=== PATIENT | female | born 1935 | race Caucasian/White ===

== ENCOUNTER 2016-08-04 10:23 | Day surgery (SDC) | payer OTHER ==
[2016-08-04] MEDS ORDERED: NS 500 ML IV ONE (10:32)
[2016-08-04 10:34] VITALS: RESP 16; O2SAT 97
--- NOTE | 2016-08-04 10:36 | EDPHY ---
H & P Time Seen by Provider: 08/04/16 10:27 HPI/ROS: CHIEF COMPLAINT: Chest pain HISTORY OF PRESENT ILLNESS: The patient is an 81-year-old female with history of severe Alzheimer's dementia who comes in by EMS complaining of chest pain this morning. She tells me that she does not remember the episode but that she most of told someone she had pain and suddenly there were bunch of people around her bring her to the hospital. Dr. Barrett called prior to her arrival and stated that her pacer reached its end of life about 1 month ago but family declined decided not to replace because she is palliative care only. EMS did record about a 5 second sinus pause. The patient currently has no complaints. She denies ever having any shortness of breath or abdominal pain. She does have a history of atrial fibrillation as well. REVIEW OF SYSTEMS: Constitutional: denies: chills, fever, recent illness, recent injury EENTM: denies: blurred vision, double vision, nose congestion Respiratory: denies: cough, shortness of breath Cardiac: See HPI Gastrointestinal/Abdominal: denies: abdominal pain, diarrhea, nausea, vomiting, blood streaked stools Genitourinary: denies: dysuria, frequency, hematuria, pain Musculoskeletal: denies: joint pain, muscle pain Skin: denies: lesions, rash, jaundice, bruising Neurological: denies: headache, numbness, paresthesia, tingling, dizziness, weakness Hematologic/Lymphatic: denies: blood clots, easy bleeding, easy bruising Immunologic/allergic: denies: HIV/AIDS, transplant EXAM: GENERAL: Well-appearing, cachectic HEAD: Atraumatic, normocephalic. EYES: Pupils equal round and reactive to light, extraocular movements intact, sclera anicteric, conjunctiva are normal. ENT: TMs normal, nares patent, oropharynx clear without exudates. Moist mucous membranes. NECK: Normal range of motion, supple without lymphadenopathy or JVD. LUNGS: Breath sounds clear to auscultation bilaterally and equal. No wheezes rales or rhonchi. HEART: Regular rate and rhythm without murmurs, rubs or gallops. ABDOMEN: Soft, nontender, normoactive bowel sounds. No guarding, no rebound. No masses appreciated. BACK: No CVA tenderness, no spinal tenderness, step-offs or deformities EXTREMITIES: Normal range of motion, no pitting or edema. No clubbing or cyanosis. NEUROLOGICAL: Cranial nerves II through XII grossly intact. Normal speech, normal gait. 5/5 strength, normal movement in all extremities, normal sensation PSYCH: Normal mood, normal affect. SKIN: Warm, dry, normal turgor, no visible rashes or lesions. Source: RN/MD, EMS, Old records Exam Limitations: No limitations - Personal History Tetanus Vaccine Date: <10 YRS - Medical/Surgical History Hx Asthma: No Hx Chronic Respiratory Disease: No Hx Diabetes: No Hx Cardiac Disease: Yes Hx Renal Disease: No Hx Cirrhosis: No Hx Alcoholism: No Hx HIV/AIDS: No Hx Splenectomy or Spleen Trauma: No Other PMH: Hypothyroidism, coronary artery disease, atrial fibrillation, ESSential tremor, hyperlipidemia, peripheral vascular disease, spinal stenosis, occasional urinary tract infection, Knee surgery, - Family History Significant Family History: Hypertension - Social History Smoking Status: Former smoker Alcohol Use: None Drug Use: None Constitutional: Initial Vital Signs Temperature (C) 36.4 C 08/04/16 10:32 Heart Rate 55 L 08/04/16 10:32 Respiratory Rate 16 08/04/16 10:32 Blood Pressure 171/96 H 08/04/16 10:32 O2 Sat (%) 97 08/04/16 10:32 O2 Delivery Mode Room Air Allergies/Adverse Reactions: No Known Allergies Allergy (Verified 08/05/15 10:26) Home Medications: Medication Instructions Recorded Simvastatin [Zocor] 60 mg PO DAILY18 08/30/11 Thyroid [Christiana Thyroid] 60 mg PO DAILY10 08/30/11 Warfarin Sodium [Coumadin] 5 mg PO SUMOWETHFR@16 08/30/11 Warfarin Sodium [Coumadin] 7.5 mg PO TUSA@16 08/30/11 Donepezil HCl 07/29/15 Propanolol 07/29/15 Medical Decision Making - Diagnostics EKG Interpretation: An EKG obtained and was read and documented in trace view. Please see trace view for full reading and report. Sinus bradycardia rate 49, similar to previous ED Course/Re-evaluation: 11:[address] Barrett has evaluated the patient and will admit her for a new pacemaker. Patient and family have now consented. Differential Diagnosis: Partial list of the Differential diagnosis considered include but were not limited to; bradycardia, chest pain and although unlikely based on the history and physical exam, I also considered infection, acute coronary disease, trauma. - Data Points Laboratory Results: Laboratory Results 08/04/16 10:30 08/04/16 10:30 08/04/16 10:30 WBC 6.40 10^3/uL (3.80-9.50) RBC 5.00 10^6/uL (4.18-5.33) Hgb 16.3 g/dL (12.6-16.3) Hct 48.7 H % (38.0-47.0) MCV 97.4 fL (81.5-99.8) MCH 32.6 pg (27.9-34.1) MCHC 33.5 g/dL (32.4-36.7) RDW 13.1 % (11.5-15.2) Plt Count 226 10^3/uL (150-400) MPV 9.4 fL (8.7-11.7) Neut % (Auto) 73.1 % (39.3-74.2) Lymph % (Auto) 19.8 % (15.0-45.0) [place] % (Auto) 5.3 % (4.5-13.0) Eos % (Auto) 1.3 % (0.6-7.6) Baso % (Auto) 0.3 % (0.3-1.7) Nucleat RBC Rel Count 0.0 % (0.0-0.2) Absolute Neuts (auto) 4.68 10^3/uL (1.70-6.50) Absolute Lymphs (auto) 1.27 10^3/uL (1.00-3.00) Absolute Monos (auto) 0.34 10^3/uL (0.30-0.80) Absolute Eos (auto) 0.08 10^3/uL (0.03-0.40) Absolute Basos (auto) 0.02 10^3/uL (0.02-0.10) Absolute Nucleated RBC 0.00 10^3/uL (0-0.01) Immature Gran % 0.2 % (0.0-1.1) Immature Gran # 0.01 10^3/uL (0.00-0.10) PT 13.4 SEC (12.0-15.0) INR 1.03 (0.83-1.16) APTT 23.9 SEC (23.0-38.0) Sodium 148 H mEq/L (134-144) Potassium 4.8 mEq/L (3.5-5.2) Chloride 112 H mEq/L (97-110) Carbon Dioxide 25 mEq/l (22-31) Anion Gap 11 mEq/L (8-16) BUN 16 mg/dL (7-23) Creatinine 1.2 H mg/dL (0.6-1.0) Estimated GFR 43 Glucose 93 mg/dL (70-100) Calcium 9.9 mg/dL (8.5-10.4) Troponin I Pending Medications Given: Discontinued Medications Sodium Chloride (Ns) 500 mls @ 0 mls/hr IV ONCE ONE PRN Reason: As Directed Stop: 08/04/16 10:33 Last Admin: 08/04/16 10:46 Dose: 500 mls Departure - Departure Disposition: [facility] Inpatient Acute Clinical Impression: Bradycardia Chest pain Qualifiers: Chest pain type: unspecified Qualifier Code: (R07.9) Chest pain, unspecified Condition: Fair
--- NOTE | 2016-08-04 10:39 | CPEKG ---
Heart Rate: 49 RR Interval: 1224 P-R Interval: 152 QRSD Interval: 98 QT Interval: 464 QTC Interval: 419 P [place]: 71 QRS [place]: 52 T Wave [place]: 25 EKG Severity - ABNORMAL ECG - EKG Impression: SINUS BRADYCARDIA EKG Impression: CONSIDER ANTEROSEPTAL INFARCT EKG Impression: similar to previous Electronically Signed By: Salazar Shay 04-Aug-2016 10:47:46
[2016-08-04 10:41] LABS: % IMMATURE GRANULYOCYTES 0.2 % (0.0-1.1); ABSOLUTE IMMATURE GRANULOCYTES 0.01 10^3/uL (0.00-0.10); ADD DIFF? NO; ADD MORPH? NO; ADD SCAN? NO; ATYPICAL LYMPHOCYTE FLAG 10 (0-99); FRAGMENT RBC FLAG 0 (0-99); HEMATOCRIT 48.7 % (38.0-47.0); HEMOGLOBIN 16.3 g/dL (12.6-16.3); LEFT SHIFT FLG 0 (0-99); LIPEMIA HEMOLYSIS FLAG 80 (0-99); MEAN CELL HEMOGLOBIN 32.6 pg (27.9-34.1); MEAN CELL HEMOGLOBIN CONCENTR. 33.5 g/dL (32.4-36.7); MEAN CELL VOLUME 97.4 fL (81.5-99.8); MEAN PLATELET VOLUME 9.4 fL (8.7-11.7); PLATELET CLUMPS FLAG 10 (0-99); PLATELET COUNT 226 10^3/uL (150-400); RED CELL DISTRIBUTION WIDTH 13.1 % (11.5-15.2)
[2016-08-04 10:50] LABS: APTT 23.9 SEC (23.0-38.0); INR 1.03 (0.83-1.16); PROTIME(PATIENT) 13.4 SEC (12.0-15.0)
[2016-08-04 10:58] LABS: ANION GAP 11 mEq/L (8-16); CALCIUM 9.9 mg/dL (8.5-10.4); CARBON DIOXIDE 25 mEq/l (22-31); CHLORIDE 112 mEq/L (97-110); CREATININE 1.2 mg/dL (0.6-1.0); GLOMERULAR FILTRATION RATE 43; GLUCOSE 93 mg/dL (70-100); POTASSIUM 4.8 mEq/L (3.5-5.2); SODIUM 148 mEq/L (134-144)
[2016-08-04 11:09] LABS: TROPONIN I 0.016 ng/mL (0-0.034)
[2016-08-04] MEDS ORDERED: BACITRACIN IRRIGATION/NS 50,000 UNITS/1,000 ML BTL IRR ONE (11:12)
[2016-08-04] MEDS ORDERED: DIAZEPAM 5 MG TAB PO ONE (11:12)
[2016-08-04] MEDS ORDERED: diphenhydrAMINE 25 MG CAP PO ONE (11:12)
[2016-08-04] MEDS ORDERED: NS 1,000 ML IV SCH (11:15)
--- NOTE | 2016-08-04 11:17 | PDEACUHP ---
History and Physical - Chief Complaint chest pain - History of Present Illness patient is well known to me. Gale is 81 years old she has a known history of coronary artery disease with a permanent pacemaker for complete heart block. Several months ago we determined that her pacemaker was end of life. We decided at that time with her family to see how she would perform without the pacemaker. This was done in the setting of severe Alzheimer's disease. This morning she awoke not feeling well. On arrival to the emergency department telemetry strip show complete heart block without capture of the pacemaker which is expected based on most recent interrogation. On my arrival she is feeling relatively well. She complains of mild discomfort. She denies shortness of breath PND orthopnea. She has had no syncope or near syncope. History Information - Allergies/Home Medication List Allergies/Adverse Reactions: No Known Allergies Allergy (Verified 08/05/15 10:26) Home Medications: Simvastatin [Zocor] 60 mg PO DAILY18 08/30/11 [Last Taken Unknown] Thyroid [[place] Thyroid] 60 mg PO DAILY10 08/30/11 [Last Taken Unknown] Warfarin Sodium [Coumadin] 5 mg PO SUMOWETHFR@16 08/30/11 [Last Taken Unknown] Warfarin Sodium [Coumadin] 7.5 mg PO TUSA@16 08/30/11 [Last Taken Unknown] Donepezil HCl 07/29/15 [Last Taken Unknown] Propanolol 07/29/15 [Last Taken Unknown] I have personally reviewed and updated: family history, medical history, social history, surgical history - Past Medical History atrial fibrillation, coronary artery disease, dementia, hyperlipidemia Additional medical history: Hypothyroidism - Surgical History Reports: angioplasty, pacemaker/AICD - Family History Positive for: non-pertinent - Social History Smoking Status: Former smoker Alcohol Use: None Drug Use: None Additional social history: she is currently living in assisted living. She is planning to move to a new apartment which has been quite stressful. She is accompanied today by her daughter. Review of Systems Constitutional: Denies: chills, diaphoresis, malaise EENMT: Reports: no symptoms Cardiac: Reports: chest pain. Denies: irregular heart rate, lightheadedness, palpitations, syncope Respiratory: Reports: no symptoms Gastrointestinal: Reports: no symptoms Genitourinary: Reports: no symptoms Muscolosketal: Reports: no symptoms Skin: Reports: no symptoms Hematologic/Lymphatic: Reports: no symptoms Immunologic/Allergy: Reports: no symptoms Physical Exam Temp Pulse Resp BP Pulse Ox 36.4 C 55 L 16 171/96 H 97 08/04/16 10:32 08/04/16 10:32 08/04/16 10:32 08/04/16 10:32 08/04/16 10:32 Constitutional: no apparent distress, appears nourished, not in pain Eyes: PERRL Ears, Nose, Mouth, Throat: moist mucous membranes Cardiovascular: irregularly irregular, other ( Pacemaker left subclavian fossa) Peripheral Pulses: 1+: carotid (R), carotid (L), femoral (R), femoral (L) Respiratory: no respiratory distress, no rales or rhonchi, clear to auscultation Gastrointestinal: normoactive bowel sounds, soft, non-tender abdomen, no palpable masses Genitourinary: no bladder fullness Skin: warm, normal color Musculoskeletal: full muscle strength Neurologic: other ( Awake and alert. Short-term memory is not intact.) Psychiatric: poor insight, poor judgement, poor memory Lymph, Heme, Immunologic: no cervical LAD, no supraclavicular LAD Lab Data & Imaging Review 08/04/16 10:30 08/04/16 10:30 WBC 6.40 10^3/uL (3.80-9.50) 08/04/16 10:30 RBC 5.00 10^6/uL (4.18-5.33) 08/04/16 10:30 Hgb 16.3 g/dL (12.6-16.3) 08/04/16 10:30 Hct 48.7 % (38.0-47.0) H 08/04/16 10:30 MCV 97.4 fL (81.5-99.8) 08/04/16 10:30 MCH 32.6 pg (27.9-34.1) 08/04/16 10:30 MCHC 33.5 g/dL (32.4-36.7) 08/04/16 10:30 RDW 13.1 % (11.5-15.2) 08/04/16 10:30 Plt Count 226 10^3/uL (150-400) 08/04/16 10:30 MPV 9.4 fL (8.7-11.7) 08/04/16 10:30 Neut % (Auto) 73.1 % (39.3-74.2) 08/04/16 10:30 Lymph % (Auto) 19.8 % (15.0-45.0) 08/04/16 10:30 [place] % (Auto) 5.3 % (4.5-13.0) 08/04/16 10:30 Eos % (Auto) 1.3 % (0.6-7.6) 08/04/16 10:30 Baso % (Auto) 0.3 % (0.3-1.7) 08/04/16 10:30 Nucleat RBC Rel Count 0.0 % (0.0-0.2) 08/04/16 10:30 Absolute Neuts (auto) 4.68 10^3/uL (1.70-6.50) 08/04/16 10:30 Absolute Lymphs (auto) 1.27 10^3/uL (1.00-3.00) 08/04/16 10:30 Absolute Monos (auto) 0.34 10^3/uL (0.30-0.80) 08/04/16 10:30 Absolute Eos (auto) 0.08 10^3/uL (0.03-0.40) 08/04/16 10:30 Absolute Basos (auto) 0.02 10^3/uL (0.02-0.10) 08/04/16 10:30 Absolute Nucleated RBC 0.00 10^3/uL (0-0.01) 08/04/16 10:30 Immature Gran % 0.2 % (0.0-1.1) 08/04/16 10:30 Immature Gran # 0.01 10^3/uL (0.00-0.10) 08/04/16 10:30 PT 13.4 SEC (12.0-15.0) 08/04/16 10:30 INR 1.03 (0.83-1.16) 08/04/16 10:30 APTT 23.9 SEC (23.0-38.0) 08/04/16 10:30 Sodium 148 mEq/L (134-144) H 08/04/16 10:30 Potassium 4.8 mEq/L (3.5-5.2) 08/04/16 10:30 Chloride 112 mEq/L (97-110) H 08/04/16 10:30 Carbon Dioxide 25 mEq/l (22-31) 08/04/16 10:30 Anion Gap 11 mEq/L (8-16) 08/04/16 10:30 BUN 16 mg/dL (7-23) 08/04/16 10:30 Creatinine 1.2 mg/dL (0.6-1.0) H 08/04/16 10:30 Estimated GFR 43 08/04/16 10:30 Glucose 93 mg/dL (70-100) 08/04/16 10:30 Calcium 9.9 mg/dL (8.5-10.4) 08/04/16 10:30 Troponin I 0.016 ng/mL (0-0.034) 08/04/16 10:30 EKG Interpretation: Positive for: normal sinsus rhythm ( sinus rhythm with intermittent heart block and no ventricular escape.) Assessment & Plan Assessment: Bradycardia (Acute) Chest pain (Acute) Impression: 81-year-old female well known to nd pacemaker at end of life likely not working at all at this point with complete heart block. Discussed options with the patient and her daughter including comfort measures versus generator change. In light of current quality of life plans to move into a new apartment and enjoyment of current quality would proceed with pacemaker generator change acutely today.Patients family would like an MRI compatible pacemaker as she is having significant back pain that would require an MRI. Atypical chest pain of uncertain etiology. Will cycle troponins. Atrial fibrillation currently on anticoagulation. She is currently subtherapeutic. Hyperlipidemia on statin. Alzheimer's dementia on Aricept. Hypothyroidism on Synthroid replacement. Will plan to check a TSH. Plan: Pacemaker generator change today. Risks and benefits of this approach were discussed with the patient's daughter and the patient. Based on her current mental status she is not able to give informed consent. I have had this conversation not only with her daughter but other family members in the past. Will proceed. In light of underlying dementia would recommend general anesthesia consultation.
--- NOTE | 2016-08-04 11:35 | DX ---
Chest, AP and Lateral History: Chest pain Comparison: August 30, 2011 Findings: Lungs are clear, without infiltrate or consolidation. Lung volumes remain moderately promin ent. Heart size and pulmonary vascularity are normal. A left chest wall pacer device and associated b ipolar pacer leads are in stable position. Median sternotomy wires and CABG clips are again present. There is stable atherosclerotic calcification in the aortic arch. There is stable mild tortuosity of the descending thoracic aorta. There is no adenopathy or mass lesion. There is no pleural effusion or pneumothorax. 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 Orthopedic hardware again overlies the low lumbar spine. Impression: COPD. Coronary artery disease. Nothing acute identified.
[2016-08-04 12:23] VITALS: BP 146/64; PULSE 48; TEMP 97.7
[2016-08-04] MEDS ORDERED: ceFAZolin 2 GM in D5W 100 ML IV ONE (13:30)
[2016-08-04] MEDS ORDERED: fentaNYL 100 MCG/2 ML INJ ONE (13:40)
[2016-08-04] MEDS ORDERED: PROPOFOL 200 MG/20 ML VIAL ONE ×2 (13:40→15:01)
[2016-08-04] MEDS ORDERED: LIDO/EPI 1% **for epidural** 30 ML SDV ONE (14:07)
[2016-08-04] MEDS ORDERED: LIDOCAINE 1% 30 ML SDV ONE (14:07)
[2016-08-04] MEDS ORDERED: BUPIVACAINE 0.5% 30 ML SDV ONE (14:07)
--- NOTE | 2016-08-04 14:41 | PDCTREPORT ---
Cardiothoracic Procedure Rpt Cardiothoracic Procedure Report: Procedure: Pacemaker generator change. Indication: Pacer at end of battery life with underlying intermittant complete AV heart block. Anesthesia present for concious sedation with hx. of severe dementia. After obtaining informed consent from the patients son, she was brought to the radiographer cardiac catheterization in the fasting state. The pacer area was sterilely prepped and draped. The old scar was anesthetized with 2% Xylocaine. An incision was made through the old scar. Using a combination of sharp and blunt dissection the pacer pocket was entered. The device was brought to the field. Leads were removed and the generator was removed from the field. A new generator was brought to the field. Leads were attached. Set screws were tightened per industry standards. The device was coiled into the pocket after copiously irrigating the pocket with Bacitracin. The pocket was closed with 2.0 Vicryl. The subcutaneous layer was closed with 3.0 Vicryl. The skin was closed with a stratofix suture. Patient in taken to recovery in stable condition. Device MRI compatible [facility] 8-DR [facility] MRI [id number] Setrox S 45 [id number] in the atrium Setrox S 53 [id number] in the ventricle Conclusion: Successful pacemaker generator replacement Patient Problems: Problems Problem Status Diagnosed Bradycardia Acute Chest pain Acute Heart block AV complete Acute Pacemaker at end of battery life Acute
--- NOTE | 2016-08-04 15:36 | CPEKG ---
Heart Rate: 60 RR Interval: 1000 P-R Interval: 164 QRSD Interval: 82 QT Interval: 472 QTC Interval: 472 P [place]: 14 QRS [place]: 48 T Wave [place]: 12 EKG Severity - ABNORMAL ECG - EKG Impression: ATRIAL-PACED COMPLEXES EKG Impression: LEFT ATRIAL ABNORMALITY EKG Impression: Poor R wave progression Electronically Signed By: Jevon Parra 04-Aug-2016 17:00:51
--- NOTE | 2016-08-04 15:49 | DX ---
Portable Chest, 1537 History: Post pacemaker placement Comparison: August 04, 2016 Findings: A different left chest wall pacer device is present. The pacer wires are solidly connected and there tips appear to be in excellent stable position overlying the heart. There is no pneumothora x. Lungs are clear. Median sternotomy wires and CABG clips are present. EKG leads overlie the chest. Impression: Excellent pacer position.
[2016-08-05] MEDS ORDERED: PROPRANOLOL HCL 80 MG PO SCH ×2 (09:00)
[2016-08-05] MEDS ORDERED: DONEPEZIL HCL 5 MG TAB PO SCH ×2 (09:00)
[2016-08-05] MEDS ORDERED: Herbals/Supplements -Info Only PO SCH (09:00)
[2016-08-05] MEDS ORDERED: ACETAMINOPHEN 500 MG TAB PO SCH ×2 (09:00)
[2016-08-05] MEDS ORDERED: THYROID 60 MG TAB PO SCH ×2 (10:00)
[2016-08-06] MEDS ORDERED: NON-FORMULARY NEW DRUG (Thyroid,Pork [Armour Thyroid] 15 MG) PO SCH ×2 (10:00)
== END 2016-08-04 16:52 | disposition home or self-care (01) ==
LOC: EDUNIT# → UNDOADMOB 11:00 → FCATH 12:51
PROVIDERS: ATTEND Internal Medicine Interventional Cardiology
PROC: 0JPT0PZ Removal of Cardiac Rhythm Related Device from Trunk Subcutaneous Tissue and Fascia, Open Approach (ICD-10-PCS; principal; 2016-08-04)
PROC: 0JH607Z Insertion of Cardiac Resynchronization Pacemaker Pulse Generator into Chest Subcutaneous Tissue and Fascia, Open Approach (ICD-10-PCS; principal; 2016-08-04)
DX: Z45.010 Encounter for checking and testing of cardiac pacemaker pulse generator [battery] (principal); R07.89 Other chest pain; I44.2 Atrioventricular block, complete; G30.9 Alzheimer's disease, unspecified; F02.80 Dementia in other diseases classified elsewhere, unspecified severity, without behavioral disturbance, psychotic disturbance, mood disturbance, and anxiety; E03.9 Hypothyroidism, unspecified; I25.10 Atherosclerotic heart disease of native coronary artery without angina pectoris; E78.5 Hyperlipidemia, unspecified; I73.9 Peripheral vascular disease, unspecified; Z87.440 Personal history of urinary (tract) infections; Z87.891 Personal history of nicotine dependence; Z95.1 Presence of aortocoronary bypass graft
CPT/HCPCS: J0690; J2704; J3010

== ENCOUNTER 2017-09-03 16:17 | Emergency (ER) | payer OTHER, BC ==
[2017-09-03 16:36] VITALS: PULSE 52; RESP 16; TEMP 97; O2SAT 98
[2017-09-03] MEDS ORDERED: LET GEL TOPICAL 1 EA SYR TP ONE ×2 (16:38→16:39)
--- NOTE | 2017-09-03 16:40 | EDPHY ---
H & P Time Seen by Provider: 09/03/17 16:34 HPI/ROS: This patient arrives with her family-daughter an son-in-law who brought her in for evaluation of a left arm laceration that occurred in her assisted living center. She believes that she and another resident there collided with walkers or wheelchairs. She does remember the details but has a superficial flap-type laceration to the dorsum of her left forearm. The incident occurred sometime within the last 12-24 hours. She reports mild discomfort at the site. She denies any other associated injuries. ROS: Neuro: No numbness or tingling Musculoskeletal: No underlying bony pain. No other injuries. 5 point ROS is otherwise negative Past Medical/Surgical History: Immunizations up-to-date. Smoking Status: Former smoker Physical Exam: Physical Exam Vital signs are normal. General: Pleasant elderly female No acute distress HEENT: Atraumatic. Eyes: Pupils equal and react to light. Extraocular motions are intact. Lungs: No respiratory distress. Cardiac: Brisk capillary refill is intact throughout. Pulses are 2+ and symmetric in the affected extremity. Skin: No rash or pallor. Patient has a 3 cm semicircular flap type superficial laceration with no bleeding with tissue well-approximated the dorsum of the left forearm. No underlying bony tenderness. No erythema or discharge. Neuro: Alert with no sensorimotor deficits. Constitutional: Initial Vital Signs Temperature (C) 36.1 C 09/03/17 16:32 Heart Rate 52 L 09/03/17 16:32 Respiratory Rate 16 09/03/17 16:32 O2 Sat (%) 98 09/03/17 16:32 O2 Delivery Mode Room Air Allergies/Adverse Reactions: No Known Allergies Allergy (Verified 09/03/17 16:30) Home Medications: Medication Instructions Recorded Acetaminophen [Tylenol ES 500 mg 500 mg PO DAILY 08/04/16 (*)] Calcium Carb W/Vit D [Calcium Carb 500 mg PO DAILY 08/04/16 W/Vit D 500/200 (*)] Donepezil HCl [Aricept 5 MG (*)] 10 mg PO DAILY 08/04/16 Herbals/Supplements -Info Only 1 ea PO DAILY 08/04/16 Propranolol HCl [Innopran Xl] 80 mg PO DAILY 08/04/16 Thyroid [[place] Thyroid 60 MG (*)] 60 mg PO DAILY10 08/04/16 Thyroid,Pork [[place] Thyroid] 15 mg PO SUMOWEFR@1000 08/04/16 MDM/Departure - MDM Medications Given: Discontinued Medications Tetracaine/Epinephrine/Lidocaine (Let Gel Topical) 1 ea TP EDNOW ONE Stop: 09/03/17 16:39 Last Admin: 09/03/17 16:46 Dose: 1 ea ED Course/Re-evaluation: Let solution is applied. The wound was clean by our nurse. She then placed Steri-Strips according my instructions. We counseled patient and her family regarding Steri-Strips care. - Depart Disposition: Home, Routine, Self-Care Clinical Impression: Superficial laceration Condition: Good Instructions: Steristrips (ED) Additional Instructions: Diagnosis: Superficial laceration of arm Plan: Keep Steri-Strips in place until they come off on her own accord- typically 5-10 days. By the time the wound should be healing well. Return if she develops redness, discharge or other concerns for infection. It is okay to get the Steri-Strips wet but try not to scrub the area. Referrals: Hay Najera MD [Primary Care Provider] - As per Instructions
[2017-09-03 17:34] VITALS: BP 132/82
== END 2017-09-03 17:25 | disposition home or self-care (01) ==
LOC: CED 16:17
DX: S51.812A Laceration without foreign body of left forearm, initial encounter (principal); Z87.891 Personal history of nicotine dependence; W51.XXXA Accidental striking against or bumped into by another person, initial encounter

== ENCOUNTER → 2017-09-05 | Outpatient (CLI) | payer OTHER, BC | LOC: CIMAGING 11:26 | PROVIDERS: ATTEND Internal Medicine | DX: R41.82 Altered mental status, unspecified (principal); I67.2 Cerebral atherosclerosis | CPT/HCPCS: 70450-PO ==

== ENCOUNTER 2017-09-19 10:35 | Observation (INO) | payer OTHER, BC ==
--- NOTE | 2017-09-19 11:07 | EDPHY ---
H & P Stated Complaint: Abdo pain and N/V since yesterday, called dispatch twice Time Seen by Provider: 09/19/17 11:07 HPI/ROS: CHIEF COMPLAINT: Abdominal pain HISTORY OF PRESENT ILLNESS: History is obtained primarily from the patient's daughter as patient has dementia and is unable to provide a meaningful history. She is an 82-year-old female with dementia, pacemaker placed for complete heart block, history of atrial fibrillation, hyperlipidemia, peripheral vascular disease, and an essential tremor. Her daughter tells me that yesterday she complained of some abdominal pain and had vomiting and bout of diarrhea. She was seen by [facility], a mobile medical team consisting of an EMT and a nurse. Some blood work was performed, a flu test was done and was negative, and she was given IV fluids. She felt better and her daughter stayed with her until 9:00 p.m. Last night. This morning her daughter visited and, as she has her mother was feeling well, offered her some breakfast. Her mother ate a few bites but again complained of abdominal pain. [facility] returned and recommended an evaluation in the emergency department. The patient has not had vomiting or diarrhea today. The patient does report some abdominal pain to me but is unable to be specific. There has been no known fever. No urinary symptoms but she has had a history of urinary tract infections in the past. REVIEW OF SYSTEMS: A ten point review of systems was performed and is negative with the exception of the items mentioned in the HPI. Past medical history: 1. Dementia 2. Coronary artery disease 3. Complete heart block status post pacemaker 4. Atrial fibrillation 5. Hypothyroidism 6. Hyperlipidemia 7. Peripheral vascular disease 8. Spinal stenosis 9. Essential tremor Past surgical history: 1. Pacemaker placement with generator replaced in July of 2016 2. Knee surgery Social history: She has 7 children. She lives at the [facility], independent status with outside help provided. General Appearance: Awake. Vital signs reviewed. Heart rate 122, blood pressure 121/91, respiratory rate 18, oxygen saturation 96% on room air, temperature 36.4 degrees orally. Eyes: Pupils equal and round, no conjunctival injection, no discharge. Anicteric. ENT, Mouth: Mucous membranes are moist, no oropharyngeal erythema or edema. Neck: No lymphadenopathy, supple. Nontender to palpation over the cervical spine. Respiratory: Lungs are clear to auscultation; no wheezes, rales, or rhonchi. Cardiovascular: Tachycardic with murmur present. Gastrointestinal: Abdomen is diffusely tender. Bowel sounds are present but diminished. Skin: Warm and dry, no rashes on exposed skin, normal color. Back: Nontender to palpation over the thoracolumbar spine. No CVAT. Extremities: No lower extremity edema, no calf tenderness or swelling. Neurological: Awake and alert. Oriented to person only. Moving all four extremities easily and equally. Psychiatric: Normal affect. No agitation. - Personal History Current Tetanus Diphtheria and Acellular Pertussis (TDAP): Unsure Tetanus Vaccine Date: unsure - Medical/Surgical History Hx Asthma: No Hx Chronic Respiratory Disease: No Hx Diabetes: No Hx Cardiac Disease: Yes Hx Renal Disease: No Hx Cirrhosis: No Hx Alcoholism: No Hx HIV/AIDS: No Hx Splenectomy or Spleen Trauma: No Other PMH: Hypothyroidism, coronary artery disease, atrial fibrillation, essential tremor, hyperlipidemia, peripheral vascular disease, spinal stenosis, occasional urinary tract infection, Knee surgery - Social History Smoking Status: Former smoker Constitutional: Initial Vital Signs Temperature (C) 36.4 C 09/19/17 10:37 Heart Rate 122 H 09/19/17 10:37 Respiratory Rate 18 09/19/17 10:37 Blood Pressure 121/91 H 09/19/17 10:37 O2 Sat (%) 96 09/19/17 10:37 O2 Delivery Mode Room Air O2 (L/minute) 4 Allergies/Adverse Reactions: No Known Allergies Allergy (Verified 09/03/17 16:30) Home Medications: Medication Instructions Recorded Acetaminophen [Tylenol ES 500 mg 500 mg PO DAILY 08/04/16 (*)] Calcium Carb W/Vit D [Calcium Carb 500 mg PO DAILY 08/04/16 W/Vit D 500/200 (*)] Donepezil HCl [Aricept 5 MG (*)] 10 mg PO DAILY 08/04/16 Herbals/Supplements -Info Only 1 ea PO DAILY 08/04/16 Propranolol HCl [Innopran Xl] 80 mg PO DAILY 08/04/16 Thyroid [[place] Thyroid 60 MG (*)] 60 mg PO DAILY10 08/04/16 Thyroid,Pork [[place] Thyroid] 15 mg PO SUMOWEFR@1000 08/04/16 Medical Decision Making - Diagnostics EKG Interpretation: 12 lead EKG is interpreted in Trace master View by emergency department physician. Shows sinus tachycardia with a rate over 100. There is ST elevation seen in lead V1 and V2. Imaging Results: Imaging Impressions Abdomen CT 09/19/17 11:42 Impression: 1. 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 2. 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 3. Pleural effusions with groundglass opacities and interlobular septal thickening, suggesting heart failure. 4. Hyperenhancement of the adrenal glands, possibly related to heart failure or hypovolemia/hypotension. 5. Multifocal small renal infarcts, which could be related to sequela of emboli , but are nonspecific. 6. Additional findings as above. Findings discussed with Dr. Maisha Leigh on September 19, 2017 at 1305 hours. Findings discussed with Dr. Yuniel Art on September 19, 2017 at 1322 hours. ED Course/Re-evaluation: 82-year-old female with abdominal pain. She has diffuse tenderness on exam. A CT scan was ordered shortly after my evaluation. This study was reported to me by Dr. Flores. Shows 5 cm of thrombus in the superior mesenteric artery with a severely stenotic celiac artery. There CT signs of bowel ischemia. Bilateral renal infarcts also noted. I spoke at length with 3 of the patient's children, 2 of whom are her medical decision makers. Patient was evaluated by Dr. Marc Art and he also spoke with the family. After discussion of the presumed natural history of this process and of the potential treatments--thrombolysis or surgery--it is decided to provide comfort measures only. The children with whom I spoke understand that this process will result in with bowel ischemia and likely sepsis ensuing. They understand that all efforts will be made to keep her comfortable. I answered their questions to the best of my ability. A palliative care consultation has been placed. The admitting physician, Dr. Mahmood, has been apprised of the family's wishes. I informed Dr. Barrett, her devulcanizer operator, of her admission. He has known the family for years. The family would like her pacemaker turned off. Differential Diagnosis: I considered a differential diagnosis that includes but is not limited to bowel ischemia, bowel obstruction, intra-abdominal infection such as appendicitis, diverticulitis, viral gastroenteritis. - Data Points Laboratory Results: Laboratory Results 09/19/17 11:20 09/19/17 11:20 09/19/17 09/19/17 09/19/17 13:20 12:20 11:20 WBC RBC Hgb Hct MCV MCH MCHC RDW Plt Count MPV Neut % (Auto) Lymph % (Auto) [place] % (Auto) Eos % (Auto) Baso % (Auto) Nucleat RBC Rel Count Absolute Neuts (auto) Absolute Lymphs (auto) Absolute Monos (auto) Absolute Eos (auto) Absolute Basos (auto) Absolute Nucleated RBC Immature Gran % Immature Gran # VBG Lactic Acid 4.8 mmol/L H mmol/L (0.7-2.1) Sodium 143 mEq/L mEq/L (135-145) Potassium 5.1 mEq/L mEq/L (3.5-5.2) Chloride 109 mEq/L mEq/L (97-110) Carbon Dioxide 17 mEq/l L mEq/l (22-31) Anion Gap 17 mEq/L H mEq/L (8-16) BUN 24 mg/dL H mg/dL (7-23) Creatinine 0.9 mg/dL mg/dL (0.6-1.0) Estimated GFR 60 Glucose 178 mg/dL H mg/dL (70-100) Calcium 9.3 mg/dL mg/dL (8.5-10.4) Urine Color JACINTO Urine Appearance MODERATELY TURBID Urine pH 5.0 (5.0-7.5) Ur Specific [place] 1.026 (1.002-1.030) Urine Protein 1+ H (NEGATIVE) Urine Ketones TRACE H (NEGATIVE) Urine Blood NEGATIVE (NEGATIVE) Urine Nitrate NEGATIVE (NEGATIVE) Urine Bilirubin NEGATIVE (NEGATIVE) Urine Urobilinogen NEGATIVE EU EU (0.2-1.0) Ur Leukocyte Esterase 1+ H (NEGATIVE) Urine RBC NONE SEEN /hpf /hpf (0-3) Urine WBC 10-15 /hpf H /hpf (0-3) Ur Epithelial Cells TRACE /lpf /lpf (NONE-1+) Urine Bacteria 3+ /hpf H /hpf (NONE SEEN) Hyaline Casts 1-5 /lpf /lpf (0-1) Urine Mucus 2+ /lpf H /lpf (NONE-1+) Urine Glucose NEGATIVE (NEGATIVE) 09/19/17 11:20 WBC 17.30 10^3/uL H 10^3/uL (3.80-9.50) RBC 4.66 10^6/uL 10^6/uL (4.18-5.33) Hgb 15.1 g/dL g/dL (12.6-16.3) Hct 46.6 % % (38.0-47.0) MCV 100.0 fL H fL (81.5-99.8) MCH 32.4 pg pg (27.9-34.1) MCHC 32.4 g/dL g/dL (32.4-36.7) RDW 13.2 % % (11.5-15.2) Plt Count 206 10^3/uL 10^3/uL (150-400) MPV 9.5 fL fL (8.7-11.7) Neut % (Auto) 82.5 % H % (39.3-74.2) Lymph % (Auto) 10.2 % L % (15.0-45.0) [place] % (Auto) 6.8 % % (4.5-13.0) Eos % (Auto) 0.0 % L % (0.6-7.6) Baso % (Auto) 0.2 % L % (0.3-1.7) Nucleat RBC Rel Count 0.0 % % (0.0-0.2) Absolute Neuts (auto) 14.27 10^3/uL H 10^3/uL (1.70-6.50) Absolute Lymphs (auto) 1.77 10^3/uL 10^3/uL (1.00-3.00) Absolute Monos (auto) 1.17 10^3/uL H 10^3/uL (0.30-0.80) Absolute Eos (auto) 0.00 10^3/uL L 10^3/uL (0.03-0.40) Absolute Basos (auto) 0.03 10^3/uL 10^3/uL (0.02-0.10) Absolute Nucleated RBC 0.00 10^3/uL 10^3/uL (0-0.01) Immature Gran % 0.3 % % (0.0-1.1) Immature Gran # 0.06 10^3/uL 10^3/uL (0.00-0.10) VBG Lactic Acid Sodium Potassium Chloride Carbon Dioxide Anion Gap BUN Creatinine Estimated GFR Glucose Calcium Urine Color Urine Appearance Urine pH Ur Specific [place] Urine Protein Urine Ketones Urine Blood Urine Nitrate Urine Bilirubin Urine Urobilinogen Ur Leukocyte Esterase Urine RBC Urine WBC Ur Epithelial Cells Urine Bacteria Hyaline Casts Urine Mucus Urine Glucose Medications Given: Discontinued Medications Fentanyl (Sublimaze) 50 mcg IVP EDNOW ONE Stop: 09/19/17 13:47 Last Admin: 09/19/17 13:55 Dose: 50 mcg Ondansetron HCl (Zofran) 4 mg IVP EDNOW ONE Stop: 09/19/17 11:43 Last Admin: 09/19/17 11:45 Dose: Not Given Promethazine HCl (Phenergan) 6.25 mg IVP ONCE ONE Stop: 09/19/17 11:44 Last Admin: 09/19/17 11:49 Dose: 6.25 mg Departure - Departure Disposition: [facility] Inpatient Acute Clinical Impression: Occlusion of superior mesenteric artery, Ischemia, bowel Condition: Critical
[2017-09-19 11:14] VITALS: TEMP 97.5
[2017-09-19] MEDS ORDERED: ONDANSETRON 4 MG/2 ML VIAL IVP ONE (11:42)
[2017-09-19] MEDS ORDERED: PROMETHAZINE HCL 25 MG/ML INJ IVP ONE (11:43)
[2017-09-19 11:54] LABS: PLATELET COUNT 206 10^3/uL (150-400)
[2017-09-19] MEDS ORDERED: IOPAMIDOL (ISOVUE-300) 100 ML BTL ONE (12:10)
--- NOTE | 2017-09-19 13:45 | CPEKG ---
Heart Rate: 100 RR Interval: 600 P-R Interval: 153 QRSD Interval: 102 QT Interval: 404 QTC Interval: 522 P Rosamond: 73 QRS Rosamond: -68 T Wave Rosamond: 87 EKG Severity - ABNORMAL ECG - EKG Impression: SINUS TACHYCARDIA EKG Impression: LEFT ANTERIOR FASCICULAR BLOCK EKG Impression: NONSPECIFIC T ABNORMALITIES, ANT-LAT LEADS EKG Impression: ST ELEVATION, PROBABLE ANTERIOR INJURY EKG Impression: PROLONGED QT INTERVAL EKG Impression: COMPARED TO EKG EKG DATED 08/04/2016 THESE CHANGES ARE NEW Electronically Signed By: Ignacio Packer 20-Sep-2017 16:17:30
[2017-09-19] MEDS ORDERED: fentaNYL 100 MCG/2 ML INJ IVP ONE (13:46)
[2017-09-19 15:10] VITALS: BP 102/80
[2017-09-19 16:12] VITALS: PULSE 89; RESP 16; O2SAT 97
[2017-09-19] MEDS ORDERED: LORazepam 2 MG/ML INJ IVP PRN (16:29)
[2017-09-19] MEDS ORDERED: ACETAMINOPHEN 325 MG TAB PO PRN (16:29)
[2017-09-19] MEDS ORDERED: ONDANSETRON DISINTEGRATING 4 MG TAB PO PRN (16:29)
[2017-09-19] MEDS ORDERED: ONDANSETRON 4 MG/2 ML VIAL IVP PRN (16:29)
[2017-09-19] MEDS ORDERED: HYDROmorphONE/DILAUDID 2 MG/ML INJ IVP PRN (16:29)
--- NOTE | 2017-09-19 17:00 | ASMTCMCOM ---
CM Note CM Note Notes: Pt is a 82 y/o female admitted for abdominal pain. CM met w/ pt and family for dispo planning. Family would like to get hospice involved. Pts son will reach out to his product distribution specialist to see which hospice he would recommend. CM to f/u tomorrow. CM provided family list of hospice facilities. Plan: TBD Date Signed: 09/19/2017 04:59 PM Electronically Signed By:JUAN RAMON Andrea
--- NOTE | 2017-09-19 17:09 | GHP ---
[f rep st] HISTORY AND PHYSICAL DATE OF ADMISSION: 09/19/2017 CHIEF COMPLAINT: Abdominal pain. HISTORY OF PRESENT ILLNESS: This is an 82-year-old female with a known dementia and known history of coronary artery disease with a permanent pacemaker placed for complete heart block. She presented t o the emergency department because of a complaint of abdominal pain, diarrhea, and vomiting x1 day. She has known severe dementia and has been in [facility] under care there. She was [facility] by [facility] mobile physician prior to admission and had a flu test that was negative, but no other data or information is available. She presents here for abdominal pain where CT scan has shown that she has a superior mesenteric clot. This information was presented to the family and to the patient. The p atlola herself is not decisional as she is severely demented. Her power of traffic law attorney was present, and it was decided that comfort measures only would be given. Thus, we are pursuing comfort measures on ly with pain medication and antianxiety medication. All of her other medications will be held. A ca ll was in to Cardiology as to whether we should stop the pacemaker, although my understanding verball y is that the pacemaker is "not keeping her alive" per Dr. Barrett. The generator and the pacemaker were replaced in July 2016. PAST MEDICAL HISTORY: 1. Coronary artery disease, unspecified in its severity at this point. 2. Pacemaker in place and functioning appropriately with a generator replaced in July 2016 for c omplete heart block. 3. Severe dementia for which she is a resident at [facility]. 4. Coumadin anticoagulation has been given previously. 5. Hypothyroidism. PAST SURGICAL HISTORY: 1. Angioplasty. 2. Pacemaker. 3. An AICD. FAMILY HISTORY: Positive for non-pertinent matters relative to this issue. SOCIAL HISTORY: She is a former smoker. Does not use alcohol. Does not use drugs. REVIEW OF SYSTEMS: At this point is unobtainable from the patient. Review from the family indicates that the symptomatology only began within the last 1-2 days. Otherwise, a 10-point review of systems would be considered to be negative. CURRENT MEDICATIONS: Noted in the EMR. Given that she will be on comfort measures only, none of the se medications will be ordered. PHYSICAL EXAMINATION: GENERAL: This is a thin, elderly female who is easily arousable but cannot gi ve any meaningful information. She smiles but does not speak. VITAL SIGNS: Blood pressure is 90/72 , her oxygenation is adequate on room air, and she has been placed on supplemental oxygen. Heart rat e is approximately 90 to 100, regular. HEENT: She has poor oral hygiene at this point with thick mu cus in her mouth. NECK: Supple. Face shows temporal wasting. Neck shows no meningismus. CHEST: W all is nontender to palpation. LUNGS: Clear to P and A. Heart: Irregularly irregular rhythm. Sin gular S1 and S2. No gallop is appreciated. JVP does not appear to be elevated. ABDOMEN: Some doris l sounds but they are hypoactive. There is tenderness overall in the abdomen, especially in the chang umbilical region without a palpable or pulsatile mass. EXTREMITIES: Thin, cool. No edema. LABORATORY: WBC elevated at 17,000, hemoglobin 15.1. Venous lactate 4.8. Renal panel shows a metab olic acidosis with anion gap of 17, dehydration with a BUN of 24, normal renal function with a creati nine 0.9. Glucose elevated at 178. Her potassium is 5.1. Urinalysis shows 10-15 WBCs, a few epithe lial cells. Two blood cultures are pending. ASSESSMENT: Acute sepsis with hypotension, leukocytosis, and an elevated venous lactate secondary to ischemic bowel due to a superior mesenteric artery clot noted on CT scan. The CT scan has been revi ewed by myself and with Radiology and the findings are confirmed. We have discussed the matter with the family. 5 family members are present along with her power of traffic law attorney, and they have all conclud ed that they want comfort measures only. The surgical option has been explained to them and they hav e replied on 3 occasions that they simply want comfort measures. Dr. Maisha Leigh, the emergency ph ysician, and myself have both discussed this with the family. Once again, they want comfort measures only. This matter will then be instituted and the patient will be a DNR status. The patient will be admitted to inpatient status. Time 65 minutes. /[id number]/MODL
--- NOTE | 2017-09-19 18:43 | HOSPPROG ---
Hospitalist Progress Note Assessment/Plan: Patient pronounced at 18:35 hours. Family called Objective: Vital Signs Temp Pulse Resp BP Pulse Ox 36.4 C 89 16 102/80 97 09/19/17 12:00 09/19/17 16:06 09/19/17 16:06 09/19/17 15:10 09/19/17 16:06 09/18/17 09/19/17 09/20/17 05:59 05:59 05:59 Output Total 50 Balance -50 ICD10 Worksheet Patient Problems: Problems Problem Status Onset Bradycardia Acute Chest pain Acute Heart block AV complete Acute Pacemaker at end of battery life Acute Occlusion of superior mesenteric artery Acute Ischemia, bowel Acute
--- NOTE | 2017-09-19 22:44 | GDS ---
[f rep st] DISCHARGE SUMMARY NEW AND ACUTE DIAGNOSES: 1. Acute sepsis with hypotension, leukocytosis, and elevated lactate secondary to ischemic bowel due to superior mesenteric artery clot. 2. Dementia. 3. The patient was made do not resuscitate and comfort measures only by the family due to the severi ty of the illness, and her underlying medical conditions. The patient at 1835 hours and was pronounced by this physician. /[id number]/MODL
--- NOTE | 2017-09-20 01:20 | SOAPPROG ---
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/ RISKS AND OPTIONS FULLY DISCUSSED WITH FAMILY OPTIONS ARE THROBOLYSIS + SURGERY/ SURGERY ONLY/ COMFORT CARE FAMILY FEELS THAT PT WOULD NOT WANT SURGERY AND HAS SELECTED COMFORT CARE WITH CERTAIN Plan:COMFORT CARE 09/20/17 0 Objective: Vital Signs Temp Pulse Resp BP Pulse Ox 36.4 C 89 16 102/80 97 09/19/17 12:00 09/19/17 16:06 09/19/17 16:06 09/19/17 15:10 09/19/17 16:06 09/18/17 09/19/17 09/20/17 05:59 05:59 05:59 Output Total 50 Balance -50 ICD10 Worksheet Patient Problems: Problems Problem Status Onset Bradycardia Acute Chest pain Acute Heart block AV complete Acute Ischemia, bowel Acute Occlusion of superior mesenteric artery Acute Pacemaker at end of battery life Acute
== END 2017-09-19 22:24 | disposition expired ==
LOC: INTOOBSV 15:13 → F3E 16:16
PROVIDERS: ADMIT Internal Medicine Pulmonary Disease; ATTEND Internal Medicine Pulmonary Disease
DX: A41.9 Sepsis, unspecified organism (principal); K55.069 Acute infarction of intestine, part and extent unspecified; K55.1 Chronic vascular disorders of intestine; F03.90 Unspecified dementia, unspecified severity, without behavioral disturbance, psychotic disturbance, mood disturbance, and anxiety; Z66 Do not resuscitate; Z51.5 Encounter for palliative care; I48.91 Unspecified atrial fibrillation; E78.5 Hyperlipidemia, unspecified; I73.9 Peripheral vascular disease, unspecified; G25.0 Essential tremor; E03.9 Hypothyroidism, unspecified; I25.10 Atherosclerotic heart disease of native coronary artery without angina pectoris; Z87.891 Personal history of nicotine dependence; Z95.0 Presence of cardiac pacemaker
CPT/HCPCS: 74177; 93005; G0378; J2060; J2405; J2550; J3010; Q9967; 96374